=== PATIENT | male | born 1975 | race Caucasian/White ===

== ENCOUNTER 2018-06-09 07:34 | Day surgery (SDC) | payer BC ==
[~2018-06-09 07:34] MED LIST: CEFAZOLIN 1 GM/50 ML (PMX) 50 ML IVPB; SOD CHLORIDE 0.9% 1,000 ML IV
[2018-06-09 08:51] LABS: ADD MAN DIFF? NO
[2018-06-09 09:00] LABS: WHITE BLOOD COUNT 5.4 10^3/ul (4.8-10.8)
[2018-06-09 09:00] LABS: BASOPHILS % 0.2 % (0.0-2.0); EOSINOPHILS # 0.1 10^3/ul (0.0-0.5); EOSINOPHILS % 2.2 % (0.0-7.0); HEMATOCRIT 44.2 % (42.0-52.0); HEMOGLOBIN 14.8 g/dl (14.0-18.0); LYMPHOCYTES # 2.2 10^3/ul (0.8-2.9); LYMPHOCYTES % 41.4 % (15.0-51.0); MEAN CORPUSCULAR HEMOGLOBIN 29.1 pg (29.0-33.0); MEAN CORPUSCULAR HGB CONC 33.5 g/dl (32.0-37.0); MEAN CORPUSCULAR VOLUME 86.8 fl (82.0-101.0); MEAN PLATELET VOLUME 10.3 fl (7.4-10.4); MONOCYTE # 0.4 10^3/ul (0.3-0.9); MONOCYTES % 7.4 % (0.0-11.0); NEUTROPHIL # 2.6 10^3/ul (1.6-7.5); NEUTROPHILS % 48.4 % (39.0-77.0); PLATELET COUNT 204 10^3/UL (140-415); RED BLOOD COUNT 5.09 10^6/ul (4.70-6.10); RED CELL DISTRIBUTION WIDTH 12.6 % (11.5-14.5)
[2018-06-09 09:18] LABS: PROTIME 12.2 Sec (11.9-14.9)
[2018-06-09 09:19] LABS: PARTIAL THROMBOPLASTIN TIME 26.8 Sec (25.0-35.0)
[2018-06-09 09:27] LABS: ALANINE AMINOTRANSFERASE 44 IU/L (13-69); ALBUMIN 4.4 g/dl (3.3-4.9); ALBUMIN/GLOBULIN RATIO 1.41; ALKALINE PHOSPHATASE 57 IU/L (42-121); ANION GAP 16 (8-16); ASPARTATE AMINO TRANSFERASE 30 IU/L (15-46); BILIRUBIN,INDIRECT 0.9 mg/dl (0-1.1); BILIRUBIN,TOTAL 0.9 mg/dl (0.2-1.3); BLOOD UREA NITROGEN 12 mg/dl (7-20); CALCIUM 9.1 mg/dl (8.4-10.2); CARBON DIOXIDE 25 mmol/L (21-31); CHLORIDE 107 mmol/L (97-110); CREATININE 0.71 mg/dl (0.61-1.24); GLUCOSE 107 mg/dl (70-220); POTASSIUM 4.6 mmol/L (3.5-5.1); SODIUM 143 mmol/L (135-144); TOTAL PROTEIN 7.5 g/dl (6.1-8.1)
[2018-06-09] MEDS ORDERED: PROPOFOL 20 ML (09:39)
[2018-06-09] MEDS ORDERED: GLYCOPYRROLATE 0.4 MG INJ (09:39)
[2018-06-09] MEDS ORDERED: FENTAnyl 50 MCG/ML VIAL (09:39)
[2018-06-09] MEDS ORDERED: MIDAZOLAM 1 MG/ML 2 ML INJ (09:39)
[2018-06-09] MEDS ORDERED: NEOSTIGMINE 3 MG/3 ML SYRINGE (09:39)
[2018-06-09] MEDS ORDERED: ROCURONIUM 50 MG INJ (09:39)
[2018-06-09] MEDS ORDERED: CEFAZOLIN 1 GM INJ (09:39)
[2018-06-09] MEDS ORDERED: ONDANSETRON 4 MG INJ (09:39)
[2018-06-09] MEDS ORDERED: DEXAMETHASONE 4 MG/ML 1 ML INJ (09:39)
[2018-06-09] MEDS ORDERED: KETOROLAC 30 MG INJ (09:41)
[2018-06-09] MEDS ORDERED: POLYMYXIN/BACITRACIN 1L IRRIG (11:50)
[2018-06-09] MEDS ORDERED: LIDOCAINE 1% (MPF) 30 ML INJ (11:50)
[2018-06-09] MEDS ORDERED: BUPIVACAINE 0.25%/EPI (MDV) 50 ML VIAL INJ (11:50)
[2018-06-09] MEDS ORDERED: EPHEDrine SULFATE 50 MG/5 ML SYG IV (12:30)
[2018-06-09] MEDS ORDERED: IPRATROPIUM (NEB) 0.5 MG/2.5 ML AMP HHN (12:30)
[2018-06-09] MEDS ORDERED: OXYCODONE/ACETAMINOPHEN (5/325) TAB PO ×2 (12:30)
[2018-06-09] MEDS ORDERED: hydrALAzine 20 MG INJ IV (12:30)
[2018-06-09] MEDS ORDERED: LABETALOL HCL 20MG INJ IV (12:30)
[2018-06-09] MEDS ORDERED: HYDROCODONE/APAP (5/325) TAB PO (12:30)
[2018-06-09] MEDS ORDERED: TRIMETHOBENZAMIDE 100 MG/ML VIAL IM (12:30)
[2018-06-09] MEDS ORDERED: MIDAZOLAM 1 MG/ML 2 ML INJ IV (12:30)
[2018-06-09] MEDS ORDERED: ALBUTEROL 0.083% (NEB) 2.5 MG/3 ML AMP HHN (12:30)
[2018-06-09] MEDS ORDERED: FENTAnyl 50 MCG/ML VIAL IV ×3 (12:30)
[2018-06-09] MEDS ORDERED: HYDROmorphONE 1 MG/5 ML IV SYRINGE IV (12:30)
[2018-06-09] MEDS ORDERED: MEPERIDINE 25 MG INJ IV (12:30)
[2018-06-09] MEDS ORDERED: BUPIVACAINE 0.25% (MPF) 30 ML INJ (13:07)
[2018-06-09] MEDS ORDERED: SUGAMMADEX SODIUM 200 MG/2 ML VIAL IV (13:25)
[2018-06-09] MEDS: DIPHENHYDRAMINE 50 MG INJ IV (14:02)
[2018-06-09] MEDS: ONDANSETRON 4 MG INJ IV (14:09)
[2018-06-09] MEDS: HYDROmorphONE 1 MG/5 ML IV SYRINGE IV ×4 (14:09→14:37)
[2018-06-09] MEDS: HYDROCODONE/APAP (5/325) TAB PO (15:43)
== END 2018-06-09 16:15 | disposition home or self-care (01) ==
LOC: SDS 07:34
DX: K43.9 Ventral hernia without obstruction or gangrene (principal)
CPT/HCPCS: 49652; 80053; 85025; 85610; 85730